=== PATIENT | female | born 1990 | race Caucasian/White ===

== ENCOUNTER 2019-10-18 07:30 | Inpatient (IN) | payer OTHER ==
[~2019-10-18] VITALS: Ht 152.4 cm; Wt 95.7 kg
[2019-10-18] VITALS (10 sets, daily range): BP systolic 89–105; BP diastolic 52–68; Ht 152.4 cm; Wt 95.7 kg
[~2019-10-18 07:30] MED LIST: IBUPROFEN600 MG PO; MOTRIN600 MG PO; PERCOCET 10/3251 TA1 PO; PERCOCET 5-3251 TAB PO; PERCOCET 5/3251 TA1 PO; PRENATAL COMPLE1 TAB PO
[2019-10-18 09:36] LABS: HEMATOCRIT 33.7 % (36.0-48.0); HEMOGLOBIN 10.5 g/dL (12-16); MCH 23.7 pg (26.0-34.0); MCHC 31.2 g/dL (31.0-37.0); MCV 76.1 fL (80.0-100.0); MEAN PLATELET VOLUME 10.5 fL (7.4-10.4); RBC 4.43 10x6/uL (4.00-5.40); RDW 15.1 % (11.5-14.5)
--- NOTE | 2019-10-18 11:34 | NUR ---
1134 VIABLE BABY BOY DELIVERED CORD BLOOD AND GASES DONE AND SENT OUT, [facility]H.
--- NOTE | 2019-10-18 13:02 | NUR ---
PALPATED FUNDUS FIRM AND MIDLINE
--- NOTE | 2019-10-18 14:00 | NUR ---
FUNDUS FIRM, U/2, SMALL RUBRA LOCHIA, NO CLOTS EXPELLED. PT STATES SHE IS COLD, AND DOES NOT WANT AN ICE PACK ON HER ABDOMEN AT THIS TIME. PT REQUESTS A WARM BLANKET, PROVIDED. PT HAS SPRITE TO DRINK, DENIES N/V, DENIES SOB, OR DIFFICULTY BREATHING. PT ENCOURAGED TO DEEP BREATHE AND COUGHING EXERCISES. INCENTIVE SPIROMETER PROVIDED WITH INSTRUCTIONS. PT DENIES OTHER NEEDS AT THIS TIME. SR UP X 2, CALL LIGHT AND PHONE WITHIN REACH.
--- NOTE | 2019-10-18 15:30 | NUR ---
TO PT'S ROOM, FUNDUS FIRM, U/2, SMALL RUBRA LOCHIA, NO CLOTS. PT DENIES ALL NEEDS AT THIS TIME. SRUP X2, CALL LIGHT AND PHONE WITHIN REACH.
[2019-10-18 17:28] LABS: BASOPHILS 0.1 % (0-2); CALC OSMOLALITY 272 mosm/kg (275-300); CALCIUM 7.2 mg/dL (8.5-10.1); CARBON DIOXIDE 20.3 mmol/L (21.0-32.0); CHLORIDE - SERUM 108 mmol/L (98-107); CREATININE - SERUM 0.6 mg/dL (0.6-1.3); EOSINOPHILS 0.1 % (0-7); GLUCOSE 94 mg/dL (74-106); HEMATOCRIT 29.1 % (36.0-48.0); HEMOGLOBIN 8.9 g/dL (12-16); IMMATURE GRANULOCYTES 0.5 % (0-5); LYMPHOCYTES 12.3 % (15-50); MCH 23.2 pg (26.0-34.0); MCHC 30.6 g/dL (31.0-37.0); MCV 75.8 fL (80.0-100.0); MEAN PLATELET VOLUME 10.5 fL (7.4-10.4); MONOCYTES 8.7 % (2-11); NEUTROPHILS 78.3 % (40-80); PLATELET COUNT 139 10x3/uL (130-400); POTASSIUM - SERUM 3.6 mmol/L (3.5-5.1); RBC 3.84 10x6/uL (4.00-5.40); RDW 15.2 % (11.5-14.5); SODIUM 138 mmol/L (136-145); UREA NITROGEN 4 mg/dL (7-18); WBC 10.1 10x3/uL (4.8-10.8); eGFR NON AFRICAN AMERICAN > 90 mL/min (90-120)
--- NOTE | 2019-10-18 17:45 | NUR ---
to pt's room, fundus firm, u/u, small rubra lochia, no clots expressed. peripads/chux changed. abdomen palpates soft. morris cath draining yellow urine. large white bandage over incision noted to have bright red blood on the lower right edge, from peripad change, otherwise, bandage c/d/i. pt denies sob, difficulty breathing, or dizziness. incentive spirometer being used and coughing and deep breathing exercises done. large ice water served. ice pack placed over gown to incision. pt continues to use manager inventory. denies all other needs at this time. srup x2, call light and phone within reach. pt rates pain to incision as 4-5/10, "burning, and aching". srup x2, call light and phone within reach.
--- NOTE | 2019-10-18 20:00 | NUR ---
PT AWAKE AND ALERT CRADLING . VS OBTAINED. LUNG SOUNDS CLEAR TO AUSCULTATION, HEART RATE WITH SINUS TACH AT 110 PT DENIES SOB, CHEST PALPITATIONS. ABD SOFT BS HYPOACTIVE. FUNDUS FIRM ML AT UMBILICUS WITH SMALL AMOUNT OF BLEEDING. SHLOMO PAD CHANGED. ABD DRESSING TO LOWER ABD CLEAN DRY AND INTACT. AMARO TO BEDSIDE DRAINAGE. SCD'S ON. PT STATES IS ANXIOUS TO GET AMARO OUT AND GET OUT OF BED. DISCUSSED POC FOR THIS EVENING. PT AGREEABLE. CALL LIGHT IN REACH, PHONE CLOSE AND SR UP X2
--- NOTE | 2019-10-18 22:30 | NUR ---
NORCO 10 GIVEN PO AND TORADOL 30 MG IVP GIVEN FOR C/O PAIN AND SORENESS. IV IN RIGHT HAND CONVERTED TO NSL AND IV IN LEFT HAND REMOVED WITH CATHETER INTACT. AMARO DC'D 450 CC ALEJANDRA COLOR URINE RETURNED. SHLOMO CARE DONE. INSTRUCTED PT TO CALL WHEN READY TO GO TO BR FOR ASSIST. PT VOIDED UNDERSTANDING. SNACK TRAY PROVIDED.
--- NOTE | 2019-10-19 00:02 | NUR ---
PT UP TO BR WITH MINIMAL ASSIST. VOIDED 900 CC TO HAT SHLOMO CARE DONE PER PT. BACK TO BED WITHOUT DIFFICULTY
--- NOTE | 2019-10-19 02:45 | NUR ---
NORCO 10 MG GIVEN PO FOR C/O PAIN RATED 7/10. PT SITTING UP FEEDING INFANT. DENIES ANY FURTHER NEEDS OR WANTS
[2019-10-19 06:10] LABS: RAPID PLASMA REAGIN Non Reactive (Non Reactive)
[2019-10-19 06:23] LABS: BASOPHILS 0 % (0-2); EOSINOPHILS 0.9 % (0-7); HEMATOCRIT 28.5 % (36.0-48.0); HEMOGLOBIN 8.6 g/dL (12-16); IMMATURE GRANULOCYTES 0.7 % (0-5); MCH 23.1 pg (26.0-34.0); MCHC 30.2 g/dL (31.0-37.0); MCV 76.4 fL (80.0-100.0); MEAN PLATELET VOLUME 11.2 fL (7.4-10.4); MONOCYTES 11.7 % (2-11); NEUTROPHILS 75.7 % (40-80); PLATELET COUNT 152 10x3/uL (130-400); RBC 3.73 10x6/uL (4.00-5.40); RDW 15.5 % (11.5-14.5); WBC 8.1 10x3/uL (4.8-10.8)
[2019-10-19 06:32] LABS: CALC OSMOLALITY 269 mosm/kg (275-300); CALCIUM 7.7 mg/dL (8.5-10.1); CHLORIDE - SERUM 105 mmol/L (98-107); CREATININE - SERUM 0.6 mg/dL (0.6-1.3); GLUCOSE 113 mg/dL (74-106); POTASSIUM - SERUM 3.6 mmol/L (3.5-5.1); SODIUM 136 mmol/L (136-145); UREA NITROGEN 3 mg/dL (7-18); eGFR NON AFRICAN AMERICAN > 90 mL/min (90-120)
--- NOTE | 2019-10-19 06:43 | NUR ---
NOTIFIED OF LAB RESULTS NO NEW ORDERS
--- NOTE | 2019-10-19 07:37 | NUR ---
RN TO BEDSIDE,LAYING ON R SIDE RESTING WITH EYES CLOSED. RESP REGULAR AND UNLABORED, NO S/S OF DISTRESS NOTED. NOT DISTURBED TO ALL FOR REST. WILL CONTNIUE TO MONITOR. BED IN LOW POSITION WITH SRUP X2. CALL LIGHT AND PHONE WITHIN REACH. WILL CONTINUE TO MONITOR.
[2019-10-19 08:46] VITALS: BP 112/57
--- NOTE | 2019-10-19 08:46 | NUR ---
SHIFT ASSESSMENT COMPLETED PER FLOWSHEET. VSS. FUNDUS FIRM, MIDLINE AND U2 WITH SMALL AMT RUBRA LOCHIA, NO CLOTS NEEDED. C/O ABD AND INCISIONAL DISCOMFORT 7-10/06, NORCO GIVEN PER ORDER AND PT REQUEST. LOWER TRANSVERSE ABD INCISION DRSG CLEAN DRY AND INTACT, NO DRAINAGE NOTED. REPORTS THAT SHE IS VOIDING AND PASSING FLATUS WITHOUT DIFFICULTY. BOWELS SOUNDS PRESENT AND ACTIVE X4 QUADRANTS. R HAND PIV D/C'D PER PT REQUEST WITH TIP INTACT, BANDAID PLACED, VERBALIZES UNDERSTANDING THAT IF IV ACCESS IS NEEDED THAT NEW PIV WILL HAVE TO BE PLACED. POC DISCUSSED, PT VERBALIZES THAT SHE WOULD LIKE TO D/C [facility]. PT EDUCATED ON ACTIVITY RESTRICTION, VERBALIZES UNDERSTANDING. BED IN LOW POSITION WITH SRUP X2. CALL LIGHT AND PHONE WITHIN REACH. WILL CONTINUE TO MONITOR.
--- NOTE | 2019-10-19 09:46 | NUR ---
UP TO SHOWER. STEADY GAIT NOTED. LINENS CHANGED. DRSG REMOVED WHILE IN SHOWER. LOWER TRANSVERSE ABD INCISION, WELL APPROXIMATED, GORDON INTACT, NO DRAINAGE OR S/S OF INFECTION NOTED. PT INSTRUCTED ON INCISIONAL CARE AND VERBALIZES/DEMONSTRATES UNDERSTANDING. VERBALIZES UNDERSTANDING OF CALL LIGHT USE IN BR.
--- NOTE | 2019-10-19 11:07 | NUR ---
PT C/O INCISIONAL/ABD PAIN AND CRAMPING/ACHING RATING PAIN 7 OUT OF 10 ON NUMERIC PAIN SCALE, PRN MOTRIN GIVEN WITH SIPS OF WATER AFTER SHOWER PER PT REQUEST. NAD NOTED. CALL LIGHT IN EASY REACH OF PT.
--- NOTE | 2019-10-19 12:01 | NUR ---
PAIN REASSESSMENT COMPLETED 2-05/06. DENIES NEED AT THIS TIME. QUESTIONS REGARDING POSSIBLE D/C HOME ADDRESSED, WILL NOTIFY DR. BARRERA WITH PT REQUESTS TO D/C HOME TODAY. ENCOURAGED TO AMBULATE ON UNIT, VERBALIZES UNDERSTANDING.
--- NOTE | 2019-10-19 12:09 | NUR ---
DR. BARRERA CONTACTED REGARDING PT CONCERNS/REQUEST TO D/C HOME [facility] D/T HAVING SPECIAL NEEDS CHILD AT HOME. PER DR. BARRERA CONTINUE TO MONITOR AND IF CAN D/C HOME PT COULD POSSIBLY D/C HOME AT 2200 THIS PM, HOWEVER IF ISN'T D/C HOME PT CAN'T D/C HOME UNTIL TOMORROW IF STABLE. DISCUSSED WITH, CONTINUES TO VERBALIZE DESIRE TO D/C HOME, ENCOURAGED TO SPEAK WITH DR. HENDERSON UPON HER ROUNDS, VERBALIZES UNDERSTANDING.
--- NOTE | 2019-10-19 14:41 | NUR ---
DR. DUFFY CONTACTED REGARDING PT REQUEST TO D/C HOME AND THAT PEDI HAS AGREED TO D/C IF PT CAN D/C HOME. ORDERS REC'D TO REPEAT CBC AT [address] AND CALL RESULTS TO DR[address] DUFFY. PT AND NBN UPDATED ON NBN. PT VERBALIZES UNDERSTANDING AND AGREEMENT.
--- NOTE | 2019-10-19 15:04 | NUR ---
C/O INCISIONAL AND ABD DISCOMFORT. NORCO GIVEN PER ORDER. BF . INSTRUCTED TO NOTIFY RN WHEN BF COMPLETED FOR V/S CHECK, VERBALIZES UNDERSTANDING. ICE WATER PROVIDED. BED IN LOW POSITION WITH SRUP X2. CALL LIGHT AND PHONE WITHIN REACH. WILL CONTINUE TO MONITOR.
[2019-10-19 15:33] VITALS: BP 108/63
--- NOTE | 2019-10-19 15:33 | NUR ---
rounds completed, vss with some tachycardia, afebrile, denies anxiety, no sob, no chest pain, denies passing clots, states lochia small amount, color wnl for race, skin warm and dry to touch. denies needs/concerns at present, call light in easy reach, infant in arms, side rails up x2, bed in low position. continue to monitor.
--- NOTE | 2019-10-19 15:53 | NUR ---
PAIN REASSESSMENT COMPLETED, 05/06 DENIES ADDITIONAL NEEDS. BONDING WITH INFANT. BED IN LOW POSITION WITH SRUP X2. CALL LIGHT AND PHONE WITHIN REACH. WILL CONTINUE TO MONITOR.
--- NOTE | 2019-10-19 17:45 | NUR ---
C/O INCISIONAL BURNING 07/06. MOTRIN GIVEN PER ORDER AND PT REQUEST. ICE WATER PROVIDED. DENIES ADDITIONAL NEEDS. BED IN LOW POSITION WITH SRUP X2. CALL LIGHT AND PHONE WITHIN REACH. RESTING QUIETLY IN OPEN CRIB AT BEDSIDE.
[2019-10-19 18:07] LABS: BASOPHILS 0.2 % (0-2); EOSINOPHILS 1.3 % (0-7); HEMATOCRIT 26.7 % (36.0-48.0); HEMOGLOBIN 8.1 g/dL (12-16); IMMATURE GRANULOCYTES 0.7 % (0-5); LYMPHOCYTES 12.6 % (15-50); MCH 23.5 pg (26.0-34.0); MCHC 30.3 g/dL (31.0-37.0); MCV 77.6 fL (80.0-100.0); MEAN PLATELET VOLUME 11.2 fL (7.4-10.4); MONOCYTES 10.5 % (2-11); NEUTROPHILS 74.7 % (40-80); PLATELET COUNT 156 10x3/uL (130-400); RBC 3.44 10x6/uL (4.00-5.40); RDW 15.6 % (11.5-14.5); WBC 8.5 10x3/uL (4.8-10.8)
--- NOTE | 2019-10-19 18:31 | NUR ---
PAIN REASSESSMENT COMPLETED, 04/08. DENIES ADDITIONAL NEEDS. BED IN LOW POSITION WITH SRUP X2. CALL LIGHT AND PHONE WITHIN REACH.
[2019-10-19 20:15] VITALS: BP 126/63
--- NOTE | 2019-10-19 20:15 | NUR ---
ASSESSMENT COMPLETE UNCHANGED FROM LAST PM. LUNG SOUNDS CLEAR, HEART RATE REGULAR NO SINUS TACH NOTED. ABD SOFT WITH BS POSITIVE AND PT REPORTS PASSING FLATUS. INCISION CLEAN DRY AND GORDON INTACT. PRESCRIPTIONS HANDED TO PT, DISCHARE INSTRUCTIONS GIVEN AND REVIEWED WITH PT INCLUDING HEMORRHAGE, DEPRESSION, ASSISTANCE. PT VOICED UNDERSTANDING. AWAITING NURSERY DISCHARGE AND S/O FOR RIDE HOME.
--- NOTE | 2019-10-19 21:55 | NUR ---
PT LEFT IN WC WITH MYSELF AND S/O AT SIDE. S/O CARRYING OUT SECURED IN CAR SEAT.
== END 2019-10-19 21:55 | disposition home or self-care (01) | DRG 788 ==
LOC: D.SDCHOLD 07:30 → D.LD 08:15 → D.SDCHOLD 10:19 → D.LD 10:21
PROVIDERS: Student in an Organized Health Care Education/Training Program; ADMIT Obstetrics & Gynecology; ATTEND Obstetrics & Gynecology
PROC: 10D00Z1 Extraction of Products of Conception, Low, Open Approach (ICD-10-PCS; principal; 2019-10-18 07:30)
DX: O40.3XX0 Polyhydramnios, third trimester, not applicable or unspecified (principal); Z3A.37 37 weeks gestation of pregnancy; Z37.0 Single live birth; O36.63X0 Maternal care for excessive fetal growth, third trimester, not applicable or unspecified; R00.0 Tachycardia, unspecified; O90.89 Other complications of the puerperium, not elsewhere classified